=== PATIENT | male | born 1960 | race Caucasian/White ===

== ENCOUNTER 2019-06-24 01:27 | Emergency (ER) | payer MEDICARE, OTHER ==
--- NOTE | 2019-06-24 01:40 | ED ---
General Adult HPI - General Chief complaint: Urogenital Stated complaint: Lower back and testicle pain Time Seen by Provider: 06/24/19 01:39 Source: patient, family Mode of arrival: wheelchair Limitations: physical limitation - History of Present Illness Initial comments: Gadiel is a pleasant 59-year-old gentleman with unfortunate medical history of ALS, patient is wheelchair-bound and on high flow oxygen all times. Patient is brought to the emergency department today by his for evaluation of sudden onset of severe right flank pain. Patient reports the pain woke a morbidly was 10 out of 10 intensity and unlike anything he's ever experienced. He denies any change in bowel or bladder habits. Pain radiates from right flank into the right testicle. - Related Data Home Medications Medication Instructions Recorded Confirmed Ibuprofen [Motrin] 200 - 400 mg PO Q6HR PRN 02/17/14 02/17/14 Allergies Allergy/AdvReac Type Severity Reaction Status Date / Time No Known Allergies Allergy Verified 06/24/19 01:38 Review of Systems ROS Statement: Those systems with pertinent positive or pertinent negative responses have been documented in the HPI. ROS Other: All systems not noted in ROS Statement are negative. Past Medical History Past Medical History: No Reported History Additional Past Medical History / Comment(s): ALS- dependent on bipap, History of Any Multi-Drug Resistant Organisms: None Reported Past Surgical History: Hernia Repair, Tonsillectomy Past Anesthesia/Blood Transfusion Reactions: Motion Sickness Past Psychological History: No Psychological Hx Reported Smoking Status: Never smoker Past Alcohol Use History: Daily Past Drug Use History: None Reported General Exam - General Exam Comments Initial Comments: GENERAL: Wheelchair bound, oxygen dependent HENT: Normocephalic, Atraumatic. EYES: PERRL, EOMI PULMONARY: Unlabored respirations. CARDIOVASCULAR: There is a regular rate and rhythm without any murmurs gallops or rubs. ABDOMEN: Soft and nontender with normal bowel sounds. SKIN: Skin is clear with no lesions or rashes and otherwise unremarkable. : Normal External genitalia Testicles are descended bilaterally No testicular tenderness NEUROLOGIC: Patient is alert and oriented x3 Paralysis consistent with a history of ALS MUSCULOSKELETAL: Generalized atrophy consistent with history of ALS PSYCHIATRIC: Normal psychiatric evaluation. Limitations: physical limitation Course Vital Signs 06/24/19 06/24/19 01:34 04:35 Temperature 97.6 F 97.7 F Pulse Rate 86 94 Respiratory 18 20 Rate Blood Pressure 149/63 128/88 O2 Sat by Pulse 95 97 Oximetry Medical Decision Making - Medical Decision Making Patient was seen and evaluated, history is obtained from the patient and at bedside 59-year-old male sudden onset of severe right flank pain Labs and imaging ordered patient was given morphine Patient reported to CT, CT resulted with a 3 mm UVJ stone Toradol was ordered for the patient however patient reported complete resolution of his pain is now resting comfortably. Results were discussed with patient and at bedside are comfortable plan for discharge home and supportive care. - Lab Data Result diagrams: 06/24/19 02:10 06/24/19 02:10 Lab Results 06/24/19 06/24/19 06/24/19 Range/Units 02:10 02:10 02:10 WBC 8.9 (3.8-10.6) k/uL RBC 4.59 (4.30-5.90) m/uL Hgb 14.2 (13.0-17.5) gm/dL Hct 43.4 (39.0-53.0) % MCV 94.4 (80.0-100.0) fL MCH 30.9 (25.0-35.0) pg MCHC 32.8 (31.0-37.0) g/dL RDW 12.5 (11.5-15.5) % Plt Count 163 (150-450) k/uL Neutrophils % 83 % Lymphocytes % 10 % Monocytes % 4 % Eosinophils % 1 % Basophils % 1 % Neutrophils # 7.4 (1.3-7.7) k/uL Lymphocytes # 0.9 L (1.0-4.8) k/uL Monocytes # 0.3 (0-1.0) k/uL Eosinophils # 0.1 (0-0.7) k/uL Basophils # 0.1 (0-0.2) k/uL Sodium 140 (137-145) mmol/L Potassium 4.1 (3.5-5.1) mmol/L Chloride 104 (98-107) mmol/L Carbon Dioxide 27 (22-30) mmol/L Anion Gap 9 mmol/L BUN 14 (9-20) mg/dL Creatinine 0.37 L (0.66-1.25) mg/dL Est GFR (CKD-EPI)AfAm >90 (>60 ml/min/1.73 sqM) Est GFR (CKD-EPI)NonAf >90 (>60 ml/min/1.73 sqM) Glucose 130 H (74-99) mg/dL Plasma Lactic Acid Ricky 1.5 (0.7-2.0) mmol/L Calcium 9.9 (8.4-10.2) mg/dL Total Bilirubin 0.7 (0.2-1.3) mg/dL AST 32 (17-59) U/L ALT 38 (21-72) U/L Alkaline Phosphatase 84 (38-126) U/L Total Protein 7.4 (6.3-8.2) g/dL Albumin 4.4 (3.5-5.0) g/dL Disposition Clinical Impression: Kidney stone Disposition: HOME SELF-CARE Condition: Stable Instructions (If sedation given, give patient instructions): Kidney Stones (ED) Is patient prescribed a controlled substance at d/c from ED?: No Referrals: Radha Saucedo MD [Primary Care Provider] - 1-2 days
[2019-06-24] MEDS ORDERED: SODIUM CHLORIDE 0.9% 500 ML 500 ML IV STA (01:52)
[2019-06-24] MEDS ORDERED: MORPHINE SULFATE 4 MG/ML SYRINGE IV STA (01:52)
[2019-06-24] MEDS ORDERED: ONDANSETRON 4 MG/2 ML VIAL IVP STA (01:52)
[2019-06-24 02:29] LABS: Basophils # (A) 0.1 k/uL (0-0.2); Basophils % (A) 1 %; Eosinophils # (A) 0.1 k/uL (0-0.7); Eosinophils % (A) 1 %; HCT 43.4 % (39.0-53.0); HGB 14.2 gm/dL (13.0-17.5); Lymphocytes # (A) 0.9 k/uL (1.0-4.8); Lymphocytes % (A) 10 %; MCH 30.9 pg (25.0-35.0); MCHC 32.8 g/dL (31.0-37.0); MCV 94.4 fL (80.0-100.0); Mean Platelet Volume 7.3; Monocytes # (A) 0.3 k/uL (0-1.0); Monocytes % (A) 4 %; Neutrophils # (A) 7.4 k/uL (1.3-7.7); Neutrophils % (A) 83 %; Platelet Count 163 k/uL (150-450); RBC 4.59 m/uL (4.30-5.90); RDW 12.5 % (11.5-15.5); WBC 8.9 k/uL (3.8-10.6)
[2019-06-24 02:44] LABS: ALT 38 U/L (21-72); AST 32 U/L (17-59); African American GFR (CKD) >90 (>60 ml/min/1.73 sqM); Albumin 4.4 g/dL (3.5-5.0); Alkaline Phosphatase 84 U/L (38-126); Anion Gap 9 mmol/L; Blood Urea Nitrogen 14 mg/dL (9-20); Calcium 9.9 mg/dL (8.4-10.2); Carbon Dioxide 27 mmol/L (22-30); Chloride 104 mmol/L (98-107); Glucose 130 mg/dL (74-99); Non-African American GFR(CKD) >90 (>60 ml/min/1.73 sqM); Potassium 4.1 mmol/L (3.5-5.1); Sodium 140 mmol/L (137-145); Total Bilirubin 0.7 mg/dL (0.2-1.3); Total Protein 7.4 g/dL (6.3-8.2)
--- NOTE | 2019-06-24 03:34 | CT ---
EXAM: CT Abdomen and Pelvis With Intravenous Contrast CLINICAL HISTORY: ITS.REASON CT Reason: abdominal pain TECHNIQUE: Axial computed tomography images of the abdomen and pelvis with intravenous contrast. CTDI is 15 mGy and DLP is 896 mGy-cm. This CT exam was performed using one or more of the following dose reduction techniques: automated exposure control, adjustment of the mA and/or kV according to patient size, and/or use of iterative reconstruction technique. COMPARISON: No relevant prior studies available. FINDINGS: Lung bases: No mass. No consolidation. ABDOMEN: Liver: Unremarkable. Gallbladder and bile ducts: Unremarkable. Pancreas: Unremarkable. Spleen: Unremarkable. Adrenals: Unremarkable. Kidneys and ureters: Mild right hydroureteronephrosis secondary to a 2- 3 mm stone in the UVJ. Left kidney is unremarkable. Stomach and bowel: No bowel obstruction. No bowel wall thickening. Gas and stool filled colon. PELVIS: Appendix: No evidence of appendicitis. Bladder: Unremarkable. Reproductive: Mildly enlarged. ABDOMEN and PELVIS: Intraperitoneal space: Unremarkable. Bones/joints: No acute fractures. Soft tissues: Unremarkable. Vasculature: No abdominal aortic aneurysm. Lymph nodes: No enlarged lymph nodes. IMPRESSION: Mild right hydroureteronephrosis secondary to a 2-3 mm stone in the UVJ.
[2019-06-24] MEDS ORDERED: KETOROLAC 30 MG/ML 1 ML VIAL IVP ONE (03:55)
[2019-06-24 04:36] VITALS: BP 128/88; PULSE 94; RESP 20; TEMP 97.7
== END 2019-06-24 05:51 | disposition home or self-care (01) ==
LOC: EC 01:27
DX: N20.2 Calculus of kidney with calculus of ureter (principal); Z99.3 Dependence on wheelchair; Z99.81 Dependence on supplemental oxygen
CPT/HCPCS: 36415; 80053; 83605; 85025; 74177; 99284; 96374; 96375; 96361 ×2; J2270; J2405; Q9967

== ENCOUNTER 2020-02-05 17:39 | Inpatient (IN) | payer OTHER, MEDICARE ==
[2020-02-05] MEDS ORDERED: IPRATROPIUM-ALBUTEROL 3 ML NEB INHALATION STA (17:45)
--- NOTE | 2020-02-05 17:50 | ED ---
SOB HPI - General Stated Complaint: JIM Time Seen by Provider: 02/05/20 17:40 Source: EMS, RN notes reviewed, old records reviewed Mode of arrival: EMS - History of Present Illness Initial Comments: This is a 51-year-old male with a history of ALS and kidney stones who had the sudden onset shortness of breath is prior to arrival he was brought in by EMS family called because of dyspnea. He was noted have saturations in the 80s. He was placed on BiPAP without a lot of improvement. Unknown whether patient has a history of COPD or any other lung issues. No reports of fevers chills cough. MD Complaint: shortness of breath - Related Data Home Medications Medication Instructions Recorded Confirmed Ibuprofen [Motrin] 200 - 400 mg PO Q6HR PRN 02/17/14 02/17/14 Allergies Allergy/AdvReac Type Severity Reaction Status Date / Time No Known Allergies Allergy Verified 02/05/20 17:46 Review of Systems ROS Statement: Those systems with pertinent positive or pertinent negative responses have been documented in the HPI. ROS Other: All systems not noted in ROS Statement are negative. Limitations: ROS unobtainable due to patients medical condition Past Medical History Past Medical History: No Reported History Additional Past Medical History / Comment(s): ALS- dependent on bipap, History of Any Multi-Drug Resistant Organisms: None Reported Past Surgical History: Hernia Repair, Tonsillectomy Past Anesthesia/Blood Transfusion Reactions: Motion Sickness Past Psychological History: No Psychological Hx Reported Smoking Status: Never smoker Past Alcohol Use History: Daily Past Drug Use History: None Reported General Exam - General Exam Comments Initial Comments: This is a well-developed sec appearing male he is awake alert and responsive though he does appear to be very dyspneic and able voice complaints at this time General appearance: alert, anxious, in distress Head exam: Present: atraumatic, normocephalic, normal inspection Eye exam: Present: normal appearance, PERRL, EOMI. Absent: scleral icterus, conjunctival injection, periorbital swelling ENT exam: Present: normal exam, mucous membranes moist Neck exam: Present: normal inspection, full ROM, other (Assessment). Absent: tenderness, meningismus, lymphadenopathy Respiratory exam: Present: accessory muscle use, decreased breath sounds. Absent: respiratory distress, wheezes, rales, rhonchi, stridor Cardiovascular Exam: Present: normal rhythm, tachycardia, normal heart sounds. Absent: systolic murmur, diastolic murmur, rubs, gallop, clicks GI/Abdominal exam: Present: soft, normal bowel sounds. Absent: distended, tenderness, guarding, rebound, rigid Extremities exam: Present: normal inspection, full ROM, normal capillary refill. Absent: tenderness, pedal edema, joint swelling, calf tenderness Back exam: Present: normal inspection Neurological exam: Present: alert, oriented X3, CN II-XII intact, motor sensory deficit Psychiatric exam: Present: normal affect, normal mood Skin exam: Present: warm, dry, intact, normal color. Absent: rash Course Vital Signs 02/05/20 02/05/20 02/05/20 17:45 17:47 18:09 Temperature 97.6 F Pulse Rate 133 H Respiratory 35 H 35 H Rate Blood Pressure 139/100 O2 Sat by Pulse 85 L Oximetry 02/05/20 02/05/20 02/05/20 18:11 19:16 20:33 Temperature 97.6 F Pulse Rate 121 H 129 H 105 H Respiratory 24 20 20 Rate Blood Pressure 108/90 112/81 102/81 O2 Sat by Pulse 95 94 L 96 Oximetry - Reevaluation(s) Reevaluation #1: 02/05/20 20:51 I did reevaluate patient on multiple occasions. Patient is improved. I did a long discussion the patient regarding the findings. Medical Decision Making - Medical Decision Making Patient is improved markedly after arrival and hydration as well as BiPAP. Patient does have evidence of left lower lobe pneumonia. I did discuss this with him and his . He admitted case is discussed with Dr. Hanley. Dr. Winkler will be consulted - Lab Data Result diagrams: 02/05/20 17:53 02/05/20 17:53 Lab Results 02/05/20 02/05/20 02/05/20 Range/Units 17:53 17:53 17:53 WBC 22.0 H (3.8-10.6) k/uL RBC 4.88 (4.30-5.90) m/uL Hgb 14.8 (13.0-17.5) gm/dL Hct 48.0 (39.0-53.0) % MCV 98.3 (80.0-100.0) fL MCH 30.4 (25.0-35.0) pg MCHC 30.9 L (31.0-37.0) g/dL RDW 13.0 (11.5-15.5) % Plt Count 449 (150-450) k/uL Neutrophils % 92 % Lymphocytes % 4 % Monocytes % 2 % Eosinophils % 1 % Basophils % 0 % Neutrophils # 20.2 H (1.3-7.7) k/uL Lymphocytes # 0.9 L (1.0-4.8) k/uL Monocytes # 0.5 (0-1.0) k/uL Eosinophils # 0.2 (0-0.7) k/uL Basophils # 0.0 (0-0.2) k/uL PT 10.2 (9.0-12.0) sec INR 1.0 (<1.2) APTT 25.0 (22.0-30.0) sec D-Dimer 1.02 H (<0.60) mg/L FEU Sodium 137 (137-145) mmol/L Potassium 4.5 (3.5-5.1) mmol/L Chloride 100 (98-107) mmol/L Carbon Dioxide 26 (22-30) mmol/L Anion Gap 11 mmol/L BUN 16 (9-20) mg/dL Creatinine 0.21 L (0.66-1.25) mg/dL Est GFR (CKD-EPI)AfAm >90 (>60 ml/min/1.73 sqM) Est GFR (CKD-EPI)NonAf >90 (>60 ml/min/1.73 sqM) Glucose 123 H (74-99) mg/dL Plasma Lactic Acid Ricky (0.7-2.0) mmol/L Calcium 9.8 (8.4-10.2) mg/dL Magnesium 1.7 (1.6-2.3) mg/dL Total Bilirubin 2.4 H (0.2-1.3) mg/dL AST 114 H (17-59) U/L ALT 71 H (4-49) U/L Alkaline Phosphatase 179 H (38-126) U/L Creatine Kinase 23 L (55-170) U/L Troponin I (0.000-0.034) ng/mL NT-Pro-B Natriuret Pep pg/mL Total Protein 7.2 (6.3-8.2) g/dL Albumin 3.8 (3.5-5.0) g/dL 02/05/20 02/05/20 02/05/20 Range/Units 17:53 17:53 17:53 WBC (3.8-10.6) k/uL RBC (4.30-5.90) m/uL Hgb (13.0-17.5) gm/dL Hct (39.0-53.0) % MCV (80.0-100.0) fL MCH (25.0-35.0) pg MCHC (31.0-37.0) g/dL RDW (11.5-15.5) % Plt Count (150-450) k/uL Neutrophils % % Lymphocytes % % Monocytes % % Eosinophils % % Basophils % % Neutrophils # (1.3-7.7) k/uL Lymphocytes # (1.0-4.8) k/uL Monocytes # (0-1.0) k/uL Eosinophils # (0-0.7) k/uL Basophils # (0-0.2) k/uL PT (9.0-12.0) sec INR (<1.2) APTT (22.0-30.0) sec D-Dimer (<0.60) mg/L FEU Sodium (137-145) mmol/L Potassium (3.5-5.1) mmol/L Chloride (98-107) mmol/L Carbon Dioxide (22-30) mmol/L Anion Gap mmol/L BUN (9-20) mg/dL Creatinine (0.66-1.25) mg/dL Est GFR (CKD-EPI)AfAm (>60 ml/min/1.73 sqM) Est GFR (CKD-EPI)NonAf (>60 ml/min/1.73 sqM) Glucose (74-99) mg/dL Plasma Lactic Acid Ricky 3.0 H* (0.7-2.0) mmol/L Calcium (8.4-10.2) mg/dL Magnesium (1.6-2.3) mg/dL Total Bilirubin (0.2-1.3) mg/dL AST (17-59) U/L ALT (4-49) U/L Alkaline Phosphatase (38-126) U/L Creatine Kinase (55-170) U/L Troponin I <0.012 (0.000-0.034) ng/mL NT-Pro-B Natriuret Pep 111 pg/mL Total Protein (6.3-8.2) g/dL Albumin (3.5-5.0) g/dL - EKG Data -: EKG Interpreted by Me (Sinus tachycardia 134 UT interval 148 QRS duration 76 QT since QTC 306/456 ) - Radiology Data Radiology results: report reviewed (I did review the imaging. He does have left lower lobe filtrated. He did have elevated d-dimer CT negative for PE evidence of mucous plugging noted.), image reviewed Critical Care Time Critical Care Time: Yes Total Critical Care Time: 39 Critical Care Time: 39 minutes of critical care time which includes initial presentation with history physical labs x-rays multiple reevaluation the patient response to therapy discuss with the patient family regarding findings discussed with the main physician admission orders documentation of the above Disposition Clinical Impression: Left lower lobe pneumonia, Acute respiratory distress syndrome, Lactic acidosis, Dehydration, ALS (amyotrophic lateral sclerosis) Disposition: ADMITTED IP TO THIS HOSP Condition: Fair Referrals: Radha Saucedo MD [Primary Care Provider] - 1-2 days
[2020-02-05 18:07] LABS: Basophils % (A) 0 %; Eosinophils # (A) 0.2 k/uL (0-0.7); Eosinophils % (A) 1 %; HGB 14.8 gm/dL (13.0-17.5); Lymphocytes # (A) 0.9 k/uL (1.0-4.8); Lymphocytes % (A) 4 %; MCH 30.4 pg (25.0-35.0); MCHC 30.9 g/dL (31.0-37.0); MCV 98.3 fL (80.0-100.0); Mean Platelet Volume 8.6; Monocytes # (A) 0.5 k/uL (0-1.0); Monocytes % (A) 2 %; Neutrophils # (A) 20.2 k/uL (1.3-7.7); Neutrophils % (A) 92 %; Platelet Count 449 k/uL (150-450); RBC 4.88 m/uL (4.30-5.90)
--- NOTE | 2020-02-05 18:12 | XR ---
EXAMINATION TYPE: XR chest 1V portable DATE OF EXAM: 02/05/2020 COMPARISON: NONE HISTORY: Short of breath TECHNIQUE: Single view FINDINGS: There is some patchy infiltrate in the left lower lobe. Heart and mediastinum are shifted s lightly to the left side. There is also atelectasis left lower lobe. Right lung is clear. There is ri ght central venous catheter with tip in the superior vena cava. No pneumothorax. There are chest lead s. There is no heart failure. IMPRESSION: Airspace infiltrate and atelectasis left lower lobe with shift of the heart to the left s elizabeth. No heart failure seen.
[2020-02-05 18:16] LABS: ALT 71 U/L (4-49); AST 114 U/L (17-59); African American GFR (CKD) >90 (>60 ml/min/1.73 sqM); Albumin 3.8 g/dL (3.5-5.0); Alkaline Phosphatase 179 U/L (38-126); Anion Gap 11 mmol/L; Blood Urea Nitrogen 16 mg/dL (9-20); Calcium 9.8 mg/dL (8.4-10.2); Carbon Dioxide 26 mmol/L (22-30); Chloride 100 mmol/L (98-107); Creatine Kinase 23 U/L (55-170); Glucose 123 mg/dL (74-99); Magnesium 1.7 mg/dL (1.6-2.3); Non-African American GFR(CKD) >90 (>60 ml/min/1.73 sqM); Potassium 4.5 mmol/L (3.5-5.1); Sodium 137 mmol/L (137-145); Total Bilirubin 2.4 mg/dL (0.2-1.3); Total Protein 7.2 g/dL (6.3-8.2)
[2020-02-05 18:24] LABS: Prothrombin Time 10.2 sec (9.0-12.0)
[2020-02-05 18:27] LABS: D-Dimer 1.02 mg/L FEU (<0.60)
[2020-02-05] MEDS ORDERED: cefTRIAXone IN SWFI 1,000 MG/10 ML SYRINGE IVP STA (19:29)
[2020-02-05] MEDS ORDERED: SODIUM CHLORIDE 0.9% 1,000 ML IV STA ×2 (19:30→20:40)
--- NOTE | 2020-02-05 20:21 | CT ---
EXAMINATION TYPE: CT angio chest DATE OF EXAM: 02/05/2020 COMPARISON: None HISTORY: SOB, elevated d-dimer CT DLP: 264.3 mGycm Automated exposure control for dose reduction was used. CONTRAST: Performed with IV Contrast, patient injected with 100 mL of Isovue 370. Multiple axial sections were obtained from the thoracic inlet to the diaphragm with IV contrast. Ther e are 3-D post processed images. There is airspace consolidation and atelectasis in the entire left lower lobe. The right lung is patricia r. Heart is shifted slightly to the left side. There is no mediastinal adenopathy. There is some left bronchial adenopathy with the largest lymph node measuring 1.4 cm. I see no filling defects in the p ulmonary arteries. The ascending aorta measures 3.6 cm. There is no evidence of dissection. There is no pericardial effusion. Heart size is normal. There is some osteopenia. There is slight anterior wedging of mid thoracic vertebra. Upper abdominal soft tissues appear intact. IMPRESSION: No evidence of pulmonary embolism. There is consolidation and atelectasis in the left lower lobe. The re is volume loss in the left hemithorax. There is occlusion of the left lower lobe bronchus. Nature of obstruction is not identified. There is also filling defect of the left upper lobe bronchus. This could be mucus plugging. Follow-up recommended. Tumor not excluded.
[2020-02-05] MEDS ORDERED: PNEUMONIA PROTOCOL UTILIZED 1 EACH MISC PO PRN (20:56)
[2020-02-05] MEDS ORDERED: AZITHROMYCIN 500 MG in SODIUM CHLORIDE 0.9% 250 ML IVPB STA (20:56)
[2020-02-05] MEDS: SODIUM CHLORIDE 0.9% 1,000 ML IV SCH ×2 (21:17→21:54)
--- NOTE | 2020-02-05 21:47 | P.HPIM ---
History of Present Illness H&P Date: 02/05/20 The patient is a 59-year-old male with a PMH of ALS (BiPAP dependent, nonverbal, bedbound -- follows at [facility]) and kidney stones who was brought in by his to the ED for shortness of breath. The history provided by the at the bedside who notes that the patient was in his usual state of health until about 4 PM earlier today when he suddenly developed shortness of breath. The patient continued to use BiPAP without improvement, at which time his activated EMS who subsequently brought him to the emergency room. The patient communicates via gesturing and noted that he feels as though he is back to his baseline. He denied any additional complaints including chest pain, fever, chills, nausea, dizziness, or headache. The patient underwent an extensive evaluation in the emergency room with chest CTA that was negative for PE though revealed a left lower lobe consolidation. Laboratory evaluation revealed a lactate of 3.0, WBC count 22, hemoglobin 14.8, troponin negative, alkaline phosphatase 179, AST 114, ALT 71, sodium 137, potassium 4.5, BUN 16, creatinine 0.21, and glucose 123. The patient was given breathing treatments along with IV fluids and IV antibiotics for pneumonia and is being admitted to the medicine service for further management with a pulmonary on consult. Review of Systems Pertinent positives and negatives as discussed in HPI, a complete review of systems was performed and all other systems are negative. Past Medical History Past Medical History: No Reported History Additional Past Medical History / Comment(s): ALS- dependent on bipap, History of Any Multi-Drug Resistant Organisms: None Reported Past Surgical History: Hernia Repair, Tonsillectomy Past Anesthesia/Blood Transfusion Reactions: Motion Sickness Past Psychological History: No Psychological Hx Reported Smoking Status: Never smoker Past Alcohol Use History: Daily Past Drug Use History: None Reported Medications and Allergies Home Medications Medication Instructions Recorded Confirmed Type Ibuprofen [Motrin] 200 - 400 mg PO Q6HR PRN 02/17/14 02/17/14 History Allergies Allergy/AdvReac Type Severity Reaction Status Date / Time No Known Allergies Allergy Verified 02/05/20 17:46 Physical Exam Vitals: Vital Signs Temp Pulse Resp BP Pulse Ox 02/05/20 20:33 97.6 F 105 H 20 102/81 96 02/05/20 19:16 129 H 20 112/81 94 L 02/05/20 18:11 121 H 24 108/90 95 02/05/20 18:09 97.6 F 02/05/20 17:47 133 H 35 H 139/100 85 L 02/05/20 17:45 35 H Intake and Output 02/05/20 02/05/20 02/05/20 06:59 14:59 22:59 Other: Weight 77.111 kg General: non toxic, no distress, appears older than stated age, frail, on BiPAP Derm: no unusual rashes/lesions no unusual ecchymoses, warm, dry Head: atraumatic, normocephalic, symmetric Eyes: EOMI, no lid lag, anicteric sclera, pupils equal round reactive to light ENT: Nose and ears atraumatic, no pharyngeal erythema Neck: No thyromegaly, no cervical lymphadenopathy, trachea midline, supple Mouth: no lip lesion, mucus membranes dry Cardiovascular: S1S2 reg, no murmur, positive posterior tibial pulse bilateral, no edema, capillary refill less than 2 seconds Lungs: Some fine scattered rhonchi, no rales or wheezing, no accessory muscle us e Abdominal: soft, nontender to palpation, no guarding Ext: Diffuse muscular atrophy, strength 1/5 of LEs beatriz with 3/5 of UEs beatriz, no contractures Neuro: No focal neuro deficits noted Psych: Alert, awake, answering questions appropriately via gesturing Results CBC & Chem 7: 02/05/20 17:53 02/05/20 17:53 Labs: Abnormal Lab Results - Last 24 Hours (Table) 02/05/20 02/05/20 02/05/20 Range/Units 17:53 17:53 17:53 WBC 22.0 H (3.8-10.6) k/uL MCHC 30.9 L (31.0-37.0) g/dL Neutrophils # 20.2 H (1.3-7.7) k/uL Lymphocytes # 0.9 L (1.0-4.8) k/uL D-Dimer 1.02 H (<0.60) mg/L FEU Creatinine 0.21 L (0.66-1.25) mg/dL Glucose 123 H (74-99) mg/dL Plasma Lactic Acid Ricky (0.7-2.0) mmol/L Total Bilirubin 2.4 H (0.2-1.3) mg/dL AST 114 H (17-59) U/L ALT 71 H (4-49) U/L Alkaline Phosphatase 179 H (38-126) U/L Creatine Kinase 23 L (55-170) U/L 02/05/20 Range/Units 17:53 WBC (3.8-10.6) k/uL MCHC (31.0-37.0) g/dL Neutrophils # (1.3-7.7) k/uL Lymphocytes # (1.0-4.8) k/uL D-Dimer (<0.60) mg/L FEU Creatinine (0.66-1.25) mg/dL Glucose (74-99) mg/dL Plasma Lactic Acid Ricky 3.0 H* (0.7-2.0) mmol/L Total Bilirubin (0.2-1.3) mg/dL AST (17-59) U/L ALT (4-49) U/L Alkaline Phosphatase (38-126) U/L Creatine Kinase (55-170) U/L Assessment and Plan Plan: Shortness of breath, likely secondary to pneumonia in setting of ALS -Continue with azithromycin. Switch to Unasyn for possible aspiration pneumonia coverage -Pulmonary consulted -Follow up blood cultures -Continue with BiPAP -Continue with IV fluids Lactic acidosis -Monitor to resolution Deranged LFTs with elevated total bilirubin -Possibly secondary to ongoing infection -Monitor for now -Consider obtaining a right upper quadrant ultrasound if does not improve DVT prophylaxis -Heparin subq The patient is admitted with an anticipated greater than 2 midnight stay for evaluation of shortness of breath CODE STATUS: No Code (The at the bedside notes that the patient has previously filled out paper-work outlining his wishes, stating that he wishes to be a DO NOT RESUSCITATE/DO NOT INTUBATE, and does not wish to undergo any form of life support for any reason. She states that he made that decision when he was diagnosed with ALS. The patient's primary concern is his comfort and quality of life.) Discussed with: Patient Anticipated discharge date: 2-[address]: Home A total of 40 minutes was spent on the care of this complex patient more than 50% of the time was spent in counseling and care coordination.
[2020-02-05] MEDS ORDERED: IPRATROPIUM-ALBUTEROL 3 ML NEB INHALATION PRN (22:49)
[2020-02-05] MEDS: AMPICILLIN-SULBACTAM 1.5 GM in SODIUM CHLORIDE 0.9% 50 ML IVPB SCH (23:00)
[2020-02-06] MEDS ORDERED: IPRATROPIUM-ALBUTEROL 3 ML NEB INHALATION SCH
[2020-02-06] MEDS ORDERED: SENNOSIDES 8.6 MG TAB PO PRN (01:15)
[2020-02-06] MEDS ORDERED: GLYCOPYRROLATE 1 MG TAB PO PRN (01:15)
[2020-02-06] MEDS: AMPICILLIN-SULBACTAM 1.5 GM in SODIUM CHLORIDE 0.9% 50 ML IVPB SCH ×4 (06:02→23:49)
--- NOTE | 2020-02-06 07:38 | XR ---
EXAMINATION TYPE: XR chest 1V portable DATE OF EXAM: 02/06/2020 HISTORY: Pneumonia. REFERENCE: Previous study dated 02/05/2020. FINDINGS: There is a Mediport in place via a right internal jugular approach. Its tip is in the super ior vena cava. There is continuing left basilar airspace disease. There is a small left effusion. The right lung is clear. The heart is not enlarged. IMPRESSION: 1. CONTINUING LEFT BASILAR AIRSPACE DISEASE. 2. SMALL LEFT EFFUSION.
[2020-02-06] MEDS: IPRATROPIUM-ALBUTEROL 3 ML NEB INHALATION SCH ×4 (08:32→20:56)
[2020-02-06] MEDS ORDERED: AZITHROMYCIN 500 MG in SODIUM CHLORIDE 0.9% 250 ML IVPB SCH (09:00)
[2020-02-06] MEDS: HEPARIN SODIUM,PORCINE 5,000 UNIT/ML 1 ML VIAL SQ SCH ×3 (09:44→23:53)
[2020-02-06] MEDS: PANTOPRAZOLE 40 MG TABLET PO SCH (09:44)
[2020-02-06] MEDS: Riluzole [Rilutek] PO SCH ×2 (09:48→21:00)
[2020-02-06 09:54] LABS: HCT 44.8 % (39.0-53.0); HGB 13.4 gm/dL (13.0-17.5); Hypochromasia Moderate; MCHC 29.8 g/dL (31.0-37.0); MCV 100.7 fL (80.0-100.0); Mean Platelet Volume 8.4; Platelet Count 253 k/uL (150-450); RBC 4.44 m/uL (4.30-5.90); RDW 12.9 % (11.5-15.5); WBC 17.3 k/uL (3.8-10.6)
[2020-02-06 10:14] LABS: ALT 56 U/L (4-49); AST 60 U/L (17-59); Albumin 2.7 g/dL (3.5-5.0); Alkaline Phosphatase 128 U/L (38-126); Anion Gap 9 mmol/L; Blood Urea Nitrogen 12 mg/dL (9-20); Calcium 8.8 mg/dL (8.4-10.2); Carbon Dioxide 22 mmol/L (22-30); Chloride 108 mmol/L (98-107); Glucose 95 mg/dL (74-99); Potassium 4.1 mmol/L (3.5-5.1); Sodium 139 mmol/L (137-145); Total Bilirubin 1.6 mg/dL (0.2-1.3); Total Protein 5.7 g/dL (6.3-8.2)
[2020-02-06 10:53] LABS: African American GFR (CKD) >90 (>60 ml/min/1.73 sqM); Non-African American GFR(CKD) >90 (>60 ml/min/1.73 sqM)
--- NOTE | 2020-02-06 11:04 | P.CNPUL ---
History of Present Illness Consult date: 02/06/20 Requesting physician: Demarcus Hanley Reason for consult: dyspnea, hypoxemia, pneumonia Chief complaint: Shortness of breath History of present illness: This is a very pleasant 59-year-old gentleman who has a history of nephrolithiasis and amyotrophic lateral sclerosis (ALS) and is dependent on sara nvasive ventilation. He was diagnosed approximately 4 years ago. He has been following at the ALS clinic out of [facility]. He is quite frail and cachectic. His is at the bedside. He was brought in via EMS after having increasing shortness of breath at home. CT angiogram ruled out pulmonary embolism. There is consolidation and atelectasis of the left lower lobe with near complete collapse. There is also a filling defect of the left upper lobe bronchus. Suspect mucous plugs. He is seen today in consultation on the selective care unit. He is currently on his home Trilogy device. Currently at 60% FiO2, rate set at 10, tidal volume 600, expiratory pressure 6, minimum pr essure 21, maximum pressure 25 cm of water. He is comfortable currently. He is afebrile. Hemodynamically stable. White count 17.3. Hemoglobin 13.4. Sodium 139. Potassium 4.1. d-dimer 1.02. Creatinine less than 0.15. Total albumin 2.7. Protein 5.7. Mejía virus not detected. Review of Systems Unable to obtain due to AVAPS dependence, mainly symptoms are pulmonary with increasing shortness of breath Past Medical History Past Medical History: No Reported History Additional Past Medical History / Comment(s): ALS- dependent on bipap, History of Any Multi-Drug Resistant Organisms: None Reported Past Surgical History: Hernia Repair, Tonsillectomy Additional Past Surgical History / Comment(s): Right chest port placed 2 years ago Past Anesthesia/Blood Transfusion Reactions: Motion Sickness Past Psychological History: No Psychological Hx Reported Smoking Status: Never smoker Past Alcohol Use History: Daily Past Drug Use History: None Reported Medications and Allergies Home Medications Medication Instructions Recorded Confirmed Type Ibuprofen [Motrin] 400 mg PO DAILY PRN 02/17/02/05/20 History Amitriptyline HCl [Elavil] 25 mg PO HS 02/05/20 02/05/20 History Esomeprazole Magnesium 20 mg PO DAILY 02/05/20 02/05/20 History Glycopyrrolate 1 mg PO TID PRN 02/05/20 02/05/20 History Riluzole [Rilutek] 50 mg PO BID 02/05/20 02/05/20 History Sennosides [Senokot] 17.2 mg PO BID PRN 02/05/20 02/05/20 History diphenhydrAMINE [Benadryl] 50 mg PO HS 02/05/20 02/05/20 History Allergies Allergy/AdvReac Type Severity Reaction Status Date / Time No Known Allergies Allergy Verified 02/05/20 22:47 Physical Exam Vitals: Vital Signs Temp Pulse Pulse Resp BP BP Pulse Ox 02/06/20 10:10 97.4 F L 93 140/85 02/06/20 08:44 100 02/06/20 08:35 106 H 02/06/20 04:00 97.6 F 107 H 27 H 98/62 02/06/20 00:00 97.7 F 114 H 18 112/81 02/05/20 22:35 100 02/05/20 21:27 98 20 107/85 98 02/05/20 20:33 97.6 F 105 H 20 102/81 96 02/05/20 19:16 129 H 20 112/81 94 L 02/05/20 18:11 121 H 24 108/90 95 02/05/20 18:09 97.6 F 02/05/20 17:47 133 H 35 H 139/100 85 L 02/05/20 17:45 35 H Intake and Output 02/05/20 02/06/20 02/06/20 22:59 06:59 14:59 Intake Total 650 Output Total 200 Balance -200 650 Intake: Intake, IV Titration 650 Amount Sodium Chloride 0.9% 1, 650 000 ml @ 130 mls/hr IV . Q7H42M [facility] Rx#:[id number] Output: Urine 200 Other: # Voids 1 # Bowel Movements 2 Weight 77.111 kg 60 kg GENERAL EXAM: Frail, cachectic 59-year-old gentleman with obvious muscle wasting, currently on Trilogy noninvasive ventilation,comfortable in no apparent distress. HEAD: Normocephalic. EYES: Normal reaction of pupils, equal size. NOSE: Clear with pink turbinates. THROAT: No erythema or exudates. NECK: No masses, no JVD. CHEST: No chest wall deformity. LUNGS: Equal air entry with crackles throughout the left lung CVS: S1 and S2 normal with no audible murmur, regular rhythm. ABDOMEN: No hepatosplenomegaly, normal bowel sounds, no guarding or rigidity. SPINE: No scoliosis or deformity SKIN: No rashes CENTRAL NERVOUS SYSTEM: No focal deficits, tone is normal in all 4 extremities. EXTREMITIES: There is no peripheral edema. No clubbing, no cyanosis. Peripheral pulses are intact. Results - Laboratory Findings CBC and BMP: 02/06/20 09:32 02/06/20 09:32 PT/INR, D-dimer PT 10.2 sec (9.0-12.0) 02/05/20 17:53 INR 1.0 (<1.2) 02/05/20 17:53 D-Dimer 1.02 mg/L FEU (<0.60) H 02/05/20 17:53 Abnormal lab findings: Abnormal Labs 02/05/20 02/05/20 02/05/20 17:53 17:53 17:53 WBC 22.0 H MCV MCHC 30.9 L Neutrophils # 20.2 H Lymphocytes # 0.9 L D-Dimer 1.02 H Chloride Creatinine 0.21 L Glucose 123 H Plasma Lactic Acid Ricky Total Bilirubin 2.4 H AST 114 H ALT 71 H Alkaline Phosphatase 179 H Creatine Kinase 23 L Total Protein Albumin 02/05/20 02/06/20 02/06/20 17:53 09:32 09:32 WBC 17.3 H MCV 100.7 H MCHC 29.8 L Neutrophils # Lymphocytes # D-Dimer Chloride 108 H Creatinine Glucose Plasma Lactic Acid Ricky 3.0 H* Total Bilirubin 1.6 H AST 60 H ALT 56 H Alkaline Phosphatase 128 H Creatine Kinase Total Protein 5.7 L Albumin 2.7 L - Diagnostic Findings Chest x-ray: image reviewed CT scan - chest: image reviewed Assessment and Plan Assessment: 1 Acute on chronic hypoxic respiratory failure secondary to consolidation and atelectasis at the left lower lobe with volume loss of the left hemithorax and occlusion of the left lower lobe bronchus. Also a filling defect in the left upper lobe bronchus. Suspect mucous plugging. Possible aspiration 2 Advanced amyotrophic lateral sclerosis (ALS) with severe muscle wasting and cachexia maintained on Trilogy noninvasive ventilation in the outpatient setting 3 History of nephrolithiasis Plan: The patient was seen and evaluated by Dr. Winkler Chest x-ray, CAT scans and labs reviewed Continue antibiotics in the form of Unasyn and azithromycin Continue bronchodilators Continue Trilogy noninvasive ventilation He did have conversation with the patient's The patient is a DO NOT RESUSCITATE/DO NOT INTUBATE CODE STATUS He had declined previous recommendations for trach and PEG tube placements We'll continue to follow and make further recommendations based on his clinical status I, the cosigning physician, performed a history & physical examination of the patient. Lungs sounds with few scattered rhonchi throughout the left lung. Maintaining good O2 saturations in the 90s on 60% FiO2 via Trilogy noninvasive ventilation. I discussed the assessment and plan of care with my nurse practitioner, Gretchen Sutton. I attest to the above consultation as dictated by her. Time with Patient: Greater than 30
[2020-02-06] MEDS: SODIUM CHLORIDE 0.9% 1,000 ML IV SCH (12:05)
--- NOTE | 2020-02-06 15:19 | P.PN ---
Subjective Patient is feeling better today. He denies shortness of breath this time. Objective - Vital Signs Vital signs: Vital Signs Temp 97.4 F L 02/06/20 10:10 Pulse 94 02/06/20 13:31 Resp 11 L 02/06/20 13:31 BP 129/89 02/06/20 13:31 Pulse Ox 97 02/06/20 13:31 Intake & Output 02/05/20 02/06/20 02/06/20 18:59 06:59 18:59 Intake Total 650 Output Total 200 200 Balance 450 -200 Weight 77.111 kg 60 kg Intake: Intake, IV Titration 650 Amount Sodium Chloride 0.9% 1, 650 000 ml @ 130 mls/hr IV . Q7H42M [facility] Rx#:[id number] Output: Urine 200 200 Other: # Voids 1 1 # Bowel Movements 2 1 - Exam General: The patient is awake and alert, he appears chronically ill Eye: there is normal conjunctiva bilaterally. Neck: The neck is supple, there is no JVD. Cardiovascular: Normal S1-S2, no S3-S4, no murmurs. Respiratory: With scattered rhonchi Gastrointestinal: Abdomen is soft, nontender Musculoskeletal: There is no pedal edema. Neurological:. Speech is normal. Skin: Skin is warm and dry - Labs CBC & Chem 7: 02/06/20 09:32 02/06/20 09:32 Labs: Abnormal Lab Results - Last 24 Hours (Table) 02/05/20 02/05/20 02/05/20 Range/Units 17:53 17:53 17:53 WBC 22.0 H (3.8-10.6) k/uL MCV (80.0-100.0) fL MCHC 30.9 L (31.0-37.0) g/dL Neutrophils # 20.2 H (1.3-7.7) k/uL Lymphocytes # 0.9 L (1.0-4.8) k/uL D-Dimer 1.02 H (<0.60) mg/L FEU Chloride (98-107) mmol/L Creatinine 0.21 L (0.66-1.25) mg/dL Glucose 123 H (74-99) mg/dL Plasma Lactic Acid Ricky (0.7-2.0) mmol/L Total Bilirubin 2.4 H (0.2-1.3) mg/dL AST 114 H (17-59) U/L ALT 71 H (4-49) U/L Alkaline Phosphatase 179 H (38-126) U/L Creatine Kinase 23 L (55-170) U/L Total Protein (6.3-8.2) g/dL Albumin (3.5-5.0) g/dL 02/05/20 02/06/20 02/06/20 Range/Units 17:53 09:32 09:32 WBC 17.3 H (3.8-10.6) k/uL MCV 100.7 H (80.0-100.0) fL MCHC 29.8 L (31.0-37.0) g/dL Neutrophils # (1.3-7.7) k/uL Lymphocytes # (1.0-4.8) k/uL D-Dimer (<0.60) mg/L FEU Chloride 108 H (98-107) mmol/L Creatinine <0.15 L (0.66-1.25) mg/dL Glucose (74-99) mg/dL Plasma Lactic Acid Ricky 3.0 H* (0.7-2.0) mmol/L Total Bilirubin 1.6 H (0.2-1.3) mg/dL AST 60 H (17-59) U/L ALT 56 H (4-49) U/L Alkaline Phosphatase 128 H (38-126) U/L Creatine Kinase (55-170) U/L Total Protein 5.7 L (6.3-8.2) g/dL Albumin 2.7 L (3.5-5.0) g/dL Assessment and Plan Assessment: 1. Community-acquired pneumonia with concerns about aspiration pneumonia, started on IV Unasyn and azithromycin. 2. Sepsis without septic shock, lactic acid back to normal. Blood culture sent and pending. 3. Acute on chronic hypoxic respiratory failure. Maintained chronically on radiology noninvasive ventilation secondary to underlying KLS 4. Underlying KLS with chronic physical debility: Follows at [facility]
[2020-02-06 16:18] VITALS: BMI 16.9
[2020-02-06] MEDS ORDERED: AMITRIPTYLINE HCL 25 MG TAB PO SCH (21:00)
[2020-02-06] MEDS ORDERED: diphenhydrAMINE 50 MG CAP PO SCH (21:00)
[2020-02-07] MEDS: AMPICILLIN-SULBACTAM 1.5 GM in SODIUM CHLORIDE 0.9% 50 ML IVPB SCH ×2 (06:10→12:43)
[2020-02-07] MEDS: IPRATROPIUM-ALBUTEROL 3 ML NEB INHALATION SCH ×4 (08:14→18:47)
[2020-02-07 08:17] LABS: Basophils % (A) 0 %; Eosinophils # (A) 0.1 k/uL (0-0.7); Eosinophils % (A) 0 %; HCT 43.8 % (39.0-53.0); Hypochromasia Moderate; Lymphocytes % (A) 5 %; MCH 30.1 pg (25.0-35.0); MCHC 29.7 g/dL (31.0-37.0); MCV 101.4 fL (80.0-100.0); Mean Platelet Volume 9.3; Monocytes # (A) 0.5 k/uL (0-1.0); Monocytes % (A) 3 %; Neutrophils # (A) 17.3 k/uL (1.3-7.7); Neutrophils % (A) 92 %; Platelet Count 238 k/uL (150-450); RBC 4.32 m/uL (4.30-5.90); RDW 12.9 % (11.5-15.5); WBC 18.9 k/uL (3.8-10.6)
[2020-02-07 08:20] LABS: ALT 40 U/L (4-49); AST 37 U/L (17-59); Albumin 2.6 g/dL (3.5-5.0); Alkaline Phosphatase 139 U/L (38-126); Anion Gap 8 mmol/L; Blood Urea Nitrogen 10 mg/dL (9-20); Calcium 8.6 mg/dL (8.4-10.2); Carbon Dioxide 23 mmol/L (22-30); Chloride 106 mmol/L (98-107); Glucose 58 mg/dL (74-99); Potassium 3.2 mmol/L (3.5-5.1); Sodium 137 mmol/L (137-145); Total Bilirubin 1.7 mg/dL (0.2-1.3); Total Protein 5.4 g/dL (6.3-8.2)
[2020-02-07] MEDS: PANTOPRAZOLE 40 MG TABLET PO SCH (08:23)
[2020-02-07] MEDS: HEPARIN SODIUM,PORCINE 5,000 UNIT/ML 1 ML VIAL SQ SCH (08:23)
[2020-02-07 08:32] LABS: African American GFR (CKD) >90 (>60 ml/min/1.73 sqM); Non-African American GFR(CKD) >90 (>60 ml/min/1.73 sqM)
[2020-02-07] MEDS: Riluzole [Rilutek] PO SCH (08:43)
[2020-02-07] MEDS ORDERED: AZITHROMYCIN 500 MG TAB PO SCH (09:00)
[2020-02-07] MEDS: POTASSIUM CHLORIDE 10 MEQ in WATER FOR INJECTION 1 100ML.BAG IVPB SCH ×3 (10:19→13:27)
--- NOTE | 2020-02-07 10:31 | XR ---
EXAMINATION TYPE: XR chest 1V portable DATE OF EXAM: 02/07/2020 HISTORY: pneumonia. REFERENCE: Previous study dated 02/06/2020. FINDINGS: A MediPort is in place on the right. There is improved aeration at the left lung base. There continues to be some consolidation. There is a small left effusion. The right lung is clear. The heart is not enlarged. IMPRESSION: IMPROVED AERATION, LEFT LUNG BASE.
--- NOTE | 2020-02-07 11:02 | P.DS ---
Providers Date of admission: 02/05/20 20:56 Expected date of discharge: 02/07/20 Attending physician: Demarcus Hanley MD Consults: 02/05/20 20:56 Consult Physician Routine Consulting Provider: Sawyer Winkler Consult Reason/Comments: Pneumonia, ALS, Do you want consulting provider notified?: Yes Primary care physician: Radha [facility] Course: This is a 59-year-old male with complex past medical history noted below significant for underlying ALS who presented to the emergency room with worsening shortness of breath. Patient was evaluated in the ER and admitted to the hospital for further management of his medical problems noted below. 1. Community-acquired pneumonia with concerns about aspiration pneumonia, started on IV Unasyn and azithromycin. Repeat chest x-ray showed some improvement. 2. Sepsis without septic shock, lactic acid back to normal. Blood culture negative to date 3. Acute on chronic hypoxic respiratory failure. Maintained chronically on triology noninvasive ventilation secondary to underlying ALS 4. Underlying KLS with chronic physical debility: Follows at [facility] Patient and his were insisting to be discharged today. They have family members visiting from out of town leaving tomorrow and would like to see the patient. I explained to them that his medical condition is not optimized for discharge yet. They insisted to be discharged. We will send a prescription for Augmentin liquid twice daily for 7 days. Advised to follow-up with pulmonology in the office as directed. Advised to return to the emergency room if his condition get worse at home. Patient will be discharged home in a stable condition. For further details about this hospitalization please refer to the electronic chart. Patient Condition at Discharge: Fair Plan - Discharge Summary Discharge Rx Participant: No New Discharge Prescriptions: New Amoxic-Pot Clav 250-62.5MG/5Ml [Augmentin 250-62.5 mg/5 ml Susp.] 10 ml PO BID 7 Days #140 ml Continue Ibuprofen [Motrin] 400 mg PO DAILY PRN PRN Reason: Pain Glycopyrrolate 1 mg PO TID PRN PRN Reason: excessive salivation diphenhydrAMINE [Benadryl] 50 mg PO HS Sennosides [Senokot] 17.2 mg PO BID PRN PRN Reason: Constipation Esomeprazole Magnesium 20 mg PO DAILY Amitriptyline HCl [Elavil] 25 mg PO HS Riluzole [Rilutek] 50 mg PO BID Discharge Medication List Ibuprofen [Motrin] 400 mg PO DAILY PRN 02/17/14 [History] Amitriptyline HCl [Elavil] 25 mg PO HS 02/05/20 [History] Esomeprazole Magnesium 20 mg PO DAILY 02/05/20 [History] Glycopyrrolate 1 mg PO TID PRN 02/05/20 [History] Riluzole [Rilutek] 50 mg PO BID 02/05/20 [History] Sennosides [Senokot] 17.2 mg PO BID PRN 02/05/20 [History] diphenhydrAMINE [Benadryl] 50 mg PO HS 02/05/20 [History] Amoxic-Pot Clav 250-62.5MG/5Ml [Augmentin 250-62.5 mg/5 ml Susp.] 10 ml PO BID 7 Days #140 ml 02/07/20 [Rx] Follow up Appointment(s)/Referral(s): Sawyer Winkler MD [STAFF PHYSICIAN] - 3 Days Radha Saucedo MD [Primary Care Provider] - 1-2 days Discharge Disposition: HOME WITH HOME HEALTH SERVICES
[2020-02-07 11:32] LABS: Glucose,Whole Blood 108 mg/dL (75-99)
--- NOTE | 2020-02-07 11:48 | P.PN ---
Subjective Progress Note Date: 02/07/20 Principal diagnosis: Acute left lower lobe pneumonia with near complete collapse This is a very pleasant 59-year-old gentleman who has a history of nephrolithiasis and amyotrophic lateral sclerosis (ALS) and is dependent on noninvasive ventilation. He was diagnosed approximately 4 years ago. He has been following at the ALS clinic out of [facility]. He is quite frail and cachectic. His is at the bedside. He was brought in via EMS after having increasing shortness of breath at home. CT angiogram ruled out pulmonary embolism. There is consolidation and atelectasis of the left lower lobe with near complete collapse. There is also a filling defect of the left upper lobe bronchus. Suspect mucous plugs. He is seen today in consultation on the selective care unit. He is currently on his home Trilogy device. Currently at 60% FiO2, rate set at 10, tidal volume 600, expiratory pressure 6, minimum pressure 21, maximum pressure 25 cm of water. He is comfortable currently. He is afebrile. Hemodynamically stable. White count 17.3. Hemoglobin 13.4. Sodium 139. Potassium 4.1. d-dimer 1.02. Creatinine less than 0.15. Total albumin 2.7. Protein 5.7. Mejía virus not detected. The patient is seen today 02/07/2020 in follow-up on the selective care unit. He is currently awake and alert in no acute distress. Breathing a bit easier today compared to yesterday. Currently on his Trilogy noninvasive ventilation device utilizing a nasal pillow. He is maintaining O2 saturations in the mid 90s. He is currently afebrile. Hemodynamically stable. Blood cultures reveal no growth to date. White count 18.9. Hemoglobin 13.0. Sodium 137. Potassium 3.2. Chloride 106. Creatinine 0.15. His been maintained on Unasyn and azithromycin along with bronchodilators. Potassium being replaced. Heparin for DVT prophylaxis. Chest x-ray showing improved aeration of the left lung base, not resolved. Objective - Vital Signs Vital signs: Vital Signs Temp 98.0 F 02/07/20 08:00 Pulse 100 02/07/20 08:29 Resp 12 02/07/20 08:00 BP 120/77 02/07/20 08:00 Pulse Ox 96 02/07/20 08:00 Intake & Output 0602/07/20 02/07/20 18:59 06:59 18:59 Output Total 200 1 Balance -200 -1 Weight 60 kg 60.2 kg Output: Urine 200 1 Other: Voiding Method Incontinent Incontinent # Voids 1 1 2 # Bowel Movements 1 1 - Exam GENERAL EXAM: Frail, cachectic 59-year-old gentleman with obvious muscle wasting, currently on Trilogy noninvasive ventilation,comfortable in no apparent distress. HEAD: Normocephalic. EYES: Normal reaction of pupils, equal size. NOSE: Clear with pink turbinates. THROAT: No erythema or exudates. NECK: No masses, no JVD. CHEST: No chest wall deformity. LUNGS: Equal air entry with few scattered rhonchi throughout the left lung CVS: S1 and S2 normal with no audible murmur, regular rhythm. ABDOMEN: No hepatosplenomegaly, normal bowel sounds, no guarding or rigidity. SPINE: No scoliosis or deformity SKIN: No rashes CENTRAL NERVOUS SYSTEM: No focal deficits, tone is normal in all 4 extremities. EXTREMITIES: There is no peripheral edema. No clubbing, no cyanosis. P eripheral pulses are intact. - Labs CBC & Chem 7: 02/07/20 06:47 02/07/20 06:47 Labs: Abnormal Lab Results - Last 24 Hours (Table) 02/07/20 02/07/20 02/07/20 Range/Units 06:47 06:47 11:30 WBC 18.9 H (3.8-10.6) k/uL MCV 101.4 H (80.0-100.0) fL MCHC 29.7 L (31.0-37.0) g/dL Neutrophils # 17.3 H (1.3-7.7) k/uL Potassium 3.2 L (3.5-5.1) mmol/L Creatinine <0.15 L (0.66-1.25) mg/dL Glucose 58 L (74-99) mg/dL POC Glucose (mg/dL) 108 H (75-99) mg/dL Total Bilirubin 1.7 H (0.2-1.3) mg/dL Alkaline Phosphatase 139 H (38-126) U/L Total Protein 5.4 L (6.3-8.2) g/dL Albumin 2.6 L (3.5-5.0) g/dL Microbiology - Last 24 Hours (Table) 02/06/20 00:00 Blood Culture - Preliminary Blood No Growth after 24 hours 02/05/20 17:53 Blood Culture - Preliminary Blood No Growth after 24 hours Assessment and Plan Assessment: 1 Acute on chronic hypoxic respiratory failure secondary to consolidation and atelectasis at the left lower lobe with volume loss of the left hemithorax and occlusion of the left lower lobe bronchus. Also a filling defect in the left upper lobe bronchus. Suspect mucous plugging. Possible aspiration. 2 Advanced amyotrophic lateral sclerosis (ALS) with severe muscle wasting and cachexia maintained on Trilogy noninvasive ventilation in the outpatient setting 3 History of nephrolithiasis Plan: The patient was seen and evaluated by Dr. Winkler Chest x-ray and labs reviewed He is recommending continued IV antibiotics currently on Unasyn and oral azithromycin The patient and his are quite adamant about him going home today despite being told he should stay and have continued IV antibiotics If they insist on going home would recommend at least Augmentin oral suspension for one week Continue Trilogy noninvasive ventilation Recommended being seen in our office for follow-up chest x-ray early this week. I, the cosigning physician, performed a history & physical examination of the patient. Lungs sounds with few scattered rhonchi throughout the left lung. Maintaining good O2 saturations in the 90s on 60% FiO2 via Trilogy noninvasive ventilation. I discussed the assessment and plan of care with my nurse practitioner, Gretchen Sutton. I attest to the above note as dictated by her.
[2020-02-07 13:19] VITALS: BP 118/79; PULSE 97; RESP 18; TEMP 98
--- NOTE | 2020-02-09 11:13 | CDI ---
Documentation Clarification Form Date: 02/09/20 From: Shae Crawford CCS Phone: If you have a question about this query, please contact Carol Woodard, Tram Inspector at [phone] between 8am and 5pm. Admit Date: 02/05/20 Discharge Date: 02/07/20 Patient Name: Gadiel Morataya Visit Number: [id number] ATTENTION: The Clinical Documentation Specialists (CDI) and [facility] Coding Staff appreciate your assistance in clarifying documentation. Please respond to the clarification below the line at the bottom and electronically sign. The CDI & [facility] Coding staff will review the response and follow-up if needed. Please note: Queries are made part of the Legal Health Record. If you have any questions, please contact the author of this message via ITS. Dear Dr. Hdz, Patient has been described as cachetic, underweight. History/Risk Factors: ALS, Bed confinement status, Declined PEG/Trach Clinical Indicators: Cachetic Albumin: 2.7 Total Protein: 5.7 Patients weight is: 60 kg Patients height is: 6 ft 2 in Calculated BMI is: 16.9 Treatments: Ensure Compact BID/ Magic Cup TID Dietary Consult: 02/05- Emaciated, underweight In order to capture the severity of condition associated with patient BMI of 16.9, a clinical diagnosis needs to be documented by the physician. Please clarify: Cachexia Underweight Malnutrition Mild Moderate Severe Other Unable to determine MTDD
== END 2020-02-07 14:55 | disposition home or self-care (01) | DRG 871 ==
LOC: EC 17:39 → 3SCARD 20:56
PROVIDERS: ADMIT Internal Medicine; ATTEND Internal Medicine
PROC: 5A09457 Assistance with Respiratory Ventilation, 24-96 Consecutive Hours, Continuous Positive Airway Pressure (ICD-10-PCS; principal; 2020-02-05)
DX: A41.9 Sepsis, unspecified organism (principal); J69.0 Pneumonitis due to inhalation of food and vomit; J96.21 Acute and chronic respiratory failure with hypoxia; E46 Unspecified protein-calorie malnutrition; G12.21 Amyotrophic lateral sclerosis; E87.2 Acidosis; R64 Cachexia; J98.11 Atelectasis; Z68.1 Body mass index [BMI] 19.9 or less, adult; Z20.828 Contact with and (suspected) exposure to other viral communicable diseases; Z66 Do not resuscitate; E86.0 Dehydration; R54 Age-related physical debility; Z71.3 Dietary counseling and surveillance; Z79.899 Other long term (current) drug therapy; Z87.442 Personal history of urinary calculi; Z98.890 Other specified postprocedural states; Z74.01 Bed confinement status
CPT/HCPCS: 36415; 71045; 71275; 80053; 82550; 83605; 83735; 83880; 84484; 85025; 85027; 85379; 85610; 85730; 87040; 93005; 94640; 94660; 96361; 96365; 96375; 99291